=== PATIENT | male | born 1990 | race Caucasian/White ===

== ENCOUNTER 2023-05-10 14:58 | Emergency (ER) | payer MEDICAID ==
[~2023-05-10] VITALS: Ht 167.6 cm; Wt 70.0 kg
[2023-05-10 15:01] VITALS: O2SAT 98
[2023-05-10] MEDS ORDERED: ACETAMINOPHEN 325MG TABLET PO ONE (16:00)
[2023-05-10 19:25] VITALS: BP 140/63; PULSE 80; RESP 18; TEMP 98.6
== END 2023-05-10 19:27 | disposition home or self-care (01) ==
LOC: ER 14:58
DX: R07.81 Pleurodynia (principal); Z98.890 Other specified postprocedural states; V43.52XA Car driver injured in collision with other type car in traffic accident, initial encounter; Y93.89 Activity, other specified; Y92.89 Other specified places as the place of occurrence of the external cause; Y99.8 Other external cause status
CPT/HCPCS: 71045; 99291